=== PATIENT | female | born 1995 | race Asian ===

== ENCOUNTER → 2019-08-30 11:06 | Outpatient (CLI) | payer SELFPAY ==
--- NOTE | 2019-08-30 11:15 | DI.RAD.S_ITS ---
PROCEDURE: XR CHEST 2V INDICATIONS: R/O LTBI TECHNIQUE: 2 views of the chest were acquired. COMPARISON: [facility], , CHEST 2VW, 10/06/2014, 18:23. FINDINGS: Surgical changes and devices: None. Lungs and pleura: Lungs are clear. No pleural effusions or pneumothorax. Mediastinum: Mediastinal contours are normal. Heart size is normal. Bones and chest wall: No suspicious bony abnormalities. Soft tissues appear unremarkable. IMPRESSION: 1. No evidence of active pulmonary tuberculosis. Dictated by: Rogelio Arellano M.D. on 08/30/2019 at 10:35 Approved by: Rogelio Arellano M.D. on 08/30/2019 at 10:39
== END ==
PROVIDERS: Visit Provider Physician Assistant
DX: R76.11 Nonspecific reaction to tuberculin skin test without active tuberculosis (principal)
CPT/HCPCS: 71046

== ENCOUNTER → 2025-06-04 11:14 | Outpatient (CLI) | payer BC, SELFPAY ==
[2025-06-04 12:47] LABS: Hemoglobin A1C% w Est Avg Glu 6.7 % (4.0-6.0)
[2025-06-04 13:01] LABS: Alanine Aminotransferase 18 IU/L (<35); Albumin 4.5 g/dL (3.5-5.0); Albumin Globulin Ratio 1.4 (1.0-2.8); Alkaline Phosphatase 72 U/L (38-126); Blood Urea Nitrogen 12 mg/dL (7-17); Calcium 9.6 mg/dL (8.4-10.2); Carbon Dioxide 24 mmol/L (22-32); Chloride 103 mmol/L (98-107); Cholesterol 192 mg/dL (140-199); Estimated Glomerular Filt Rate > 60 mL/min (>60); Globulin 3.2 g/dL (1.7-4.1); Glucose 154 mg/dL (70-99); HDL Cholesterol 64 mg/dL (40-60); HEMOLYSIS < 15 (0-50); Potassium 4.7 mmol/L (3.4-5.1); Sodium 138 mmol/L (137-145); Total Protein 7.7 g/dL (6.3-8.2); Triglycerides 112 mg/dL (35-150)
== END ==
PROVIDERS: PCP Family Medicine; Referring Provider Family Medicine; Visit Provider Family Medicine
DX: R10.9 Unspecified abdominal pain (principal); K21.9 Gastro-esophageal reflux disease without esophagitis; M54.9 Dorsalgia, unspecified; Z76.89 Persons encountering health services in other specified circumstances
CPT/HCPCS: 36415; 80053; 80061; 83036

== ENCOUNTER → 2025-08-28 09:24 | Outpatient (CLI) | payer BC, SELFPAY | PROVIDERS: PCP Family Medicine; Referring Provider Family Medicine; Visit Provider Family Medicine | DX: Z11.1 Encounter for screening for respiratory tuberculosis (principal) | CPT/HCPCS: 36415; 86480 ==